=== PATIENT | female | born 2000 | race Caucasian/White ===

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

== ENCOUNTER 2023-01-18 16:49 | Emergency (ER) | payer OTHER, SELFPAY ==
[2023-01-18 18:10] VITALS: BP 123/79; PULSE 84; RESP 18; TEMP 36.9; O2SAT 98; BMI 17.9
[2023-01-18 18:27] LABS: UTC Pregnancy Test, Urine Negative (Negative)
--- NOTE | 2023-01-18 18:37 | EXP.UTC ---
Discharge Plan Disposition Patient Disposition: Home, Self-Care Condition: Good Prescriptions Prescriptions: New methylprednisolone [Medrol (Eugenio)] 4 mg tablets,dose pack See Rx Instructions .Route .COMPLEX 6 Days Qty: 21 0RF Rx Instructions: taper pack; No Action norethindrone-e.estradiol-iron [09/18 ()] 1 mg-20 mcg (21)/75 mg (7) tablet 1 tab PO DAILY Qty: 28 11RF Referrals Follow up/Referrals: Provider,Referral, MD [Primary Care Provider] - See instructions Activity Restrictions/Add. Instructions Additional Instructions/Restrictions: Oral benadryl as directed on package Oatmeal bathes may help with rash and itching Start oral steriods tomorrow Follow up with Dermatology if no improvement or any worsening of symptoms Clinical Impressions Clinical Impression: Urticaria Instructions Patient Instructions: [facility] for Hives Discharge ED Provider: Shawanda El [facility] [place] HPI General Stated complaint: Rash all over body Mode of Arrival: Ambulatory Source of Information: Patient Limitations: No Limitations Time Seen by Provider: 01/18/23 18:37 Description of Symptoms (Recalled from Triage Doc. by RN): PATIENT C/O RASH ALL OVER SINCE YESTERDAY HEENT Symptoms (Recalled from RN notes): No Resp Symptoms (Recalled from RN notes): No Skin Symptoms (Recalled from RN notes): Yes MS Symptoms (Recalled from RN notes): No Functional Status (Recalled from RN notes): WNL History of Present Illness Provider Complaint: Patient states that she started breaking out in rash yesterday and it has continued to spread States that rash is itchy and it is aggrivating her with the itching States that it started on her stomach an now has spread to her arms and legs Unsure what she may be having a reaction too Related Data Previous Rx's Medication Instructions Recorded norethindrone 1 mg-ethinyl 1 tab PO DAILY #28 tabs 08/12/20 estradiol 20 mcg (21)-iron 75 mg (7) tablet (09/18 (28)) methylprednisolone 4 mg tablets in See Rx Instructions .Route 01/18/23 a dose pack (Medrol (Eugenio)) .COMPLEX 6 days #21 tabs Allergies Allergy/AdvReac Type Severity Reaction Status Date / Time No Known Allergies Allergy Verified 08/12/20 15:42 Worker's Comp Is this a Worker's Comp case?: No [facility] Disclaimer: The information contained in this section may have been updated after the patient was seen, as this information can be updated by other users. Social History Smoking Status: Never smoker alcohol intake: never substance use type: denies use current occupational status: other Travel in the last 8 weeks: None household members: family housing: house current occupational exposures/hazards: No ROS Obtained: Yes All systems reviewed & no additional complaints except as documented and Yes Systems reviewed as appropriate & no additional complaints except as documented Constitutional Constitutional: Reports system reviewed and no additional complaints, except as documented and Reports as per HPI ENT Ears, Nose, Mouth, and Throat: Reports system reviewed and no additional complaints, except as documented and Reports as per HPI Cardiovascular Cardiovascular: Reports system reviewed and no additional complaints, except as documented and Reports as per HPI Respiratory Respiratory: Reports system reviewed and no additional complaints, except as documented and Reports as per HPI Gastrointestinal Gastrointestingal: Reports system reviewed and no additional complaints, except as documented and as per HPI Musculoskeletal Musculoskeletal: Reports system reviewed and no additional complaints, except as documented and Reports as per HPI Integumentary/Breasts Skin/Breast: Reports system reviewed and no additional complaints, except as documented, Reports as per HPI, Reports pruritus and Reports rash Physical Exam General General appearance: alert and in no apparent distress ENT ENT exam: Prese
[2023-01-18 18:59] VITALS: BP 123/79; PULSE 84; RESP 18; TEMP 36.9; O2SAT 98
[2023-01-18 19:13] LABS: UTC Strep Screen (Rapid) Negative (Negative)
== END 2023-01-18 19:20 | disposition home or self-care (01) ==
PROVIDERS: Emergency Provider Nurse Practitioner
DX: L50.9 Urticaria, unspecified (principal)
CPT/HCPCS: 81025; 87880; 96372; 99212; 99214; G0463

== ENCOUNTER 2023-05-04 18:41 | Emergency (ER) | payer OTHER, SELFPAY ==
[2023-05-04 18:41] VITALS: BP 129/72; PULSE 103; RESP 16; TEMP 36.9; O2SAT 99; BMI 18.1
--- NOTE | 2023-05-04 19:01 | HMH.EDGENADL ---
Discharge Plan Disposition Patient Disposition: Home, Self-Care Condition: Good Chief Complaint: Abdominal Pain Prescriptions Prescriptions: No Action norethindrone-e.estradiol-iron [09/18 (28)] 1 mg-20 mcg (21)/75 mg (7) tablet 1 tab PO DAILY Qty: 28 11RF methylprednisolone [Medrol (Eugenio)] 4 mg tablets,dose pack See Rx Instructions .Route .COMPLEX 6 Days Qty: 21 0RF Rx Instructions: taper pack; Referrals Follow up/Referrals: Provider,Referral, [Primary Care Provider] - See instructions Clinical Impressions Clinical Impression: Abdominal cramping Instructions Patient Instructions: DI for Acute Abdominal Pain Discharge ED Provider: Yumi Ritter General Adult HPI General Chief complaint: Abdominal Pain Stated complaint: Preg, Cramping Time Seen by Provider: 05/04/23 18:59 Mode of Arrival: Ambulatory Source of Information: Patient Limitations: No Limitations Description of Symptoms (Recalled from ER Triage Doc. by RN): Presents to ED with c/o of abd cramping today. Patient reports she took 2 tests 2 weeks ago and they were both positive but has not est. care with an OB. Patient states she believed she missed her period in February and March History of Present Illness HPI narrative: Patient with no PMHX who presents to the ED with complaints of abdominal cramping. Patient notes that 2 weeks ago, she took a urine test at home which was positive. Patient notes that for the past week, she has been having intermittent cramping which has become more constant today. Patient denies any vaginal bleeding, vaginal discharge, passage of clots or tissue. Patient has not establish care with an [facility] [employer] yet. Patient notes last period was in February. Related Data Previous Rx's Medication Instructions Recorded norethindrone 1 mg-ethinyl 1 tab PO DAILY #28 tabs 08/12/20 estradiol 20 mcg (21)-iron 75 mg (7) tablet (09/18 (28)) methylprednisolone 4 mg tablets in See Rx Instructions .Route 01/18/23 a dose pack (Medrol (Eugenio)) .COMPLEX 6 days #21 tabs Allergies Allergy/AdvReac Type Severity Reaction Status Date / Time No Known Allergies Allergy Verified 08/12/20 15:42 [facility] Disclaimer: The information contained in this section may have been updated after the patient was seen, as this information can be updated by other users. Social History Smoking Status: Current every day smoker tobacco type: e-cigarettes alcohol intake: never substance use type: denies use current occupational status: other Travel in the last 8 weeks: None household members: family housing: house current occupational exposures/hazards: No ROS Obtained: Yes All systems reviewed & no additional complaints except as documented Physical Exam General General appearance: alert and in no apparent distress Head Head exam: atraumatic, normocephalic and normal inspection Eye Eye exam: Present normal appearance, PERRL and EOMI; Absent scleral icterus or nystagmus ENT ENT exam: Present normal exam, mucous membranes moist and normal external ear exam Neck Neck exam: Present normal inspection, full ROM and trachea midline Chest Chest inspection: Present normal inspection and symmetric chest wall rise; Absent tenderness Respiratory Respiratory exam: Present normal lung sounds bilaterally; Absent respiratory distress, wheezes or accessory muscle use Cardiovascular Cardiovascular exam: Present regular rate, normal rhythm and normal heart sounds Abdominal Exam Abdominal exam: Present soft; Absent distention, tenderness, guarding, rebound, rigidity, trauma, ascites or pulsatile mass Extremities Exam Extremities exam: Present normal inspection and full ROM; Absent tenderness Back Exam Back exam: Present normal inspection and full ROM; Absent tenderness Neurological Exam Neurological exam: Present alert, oriented X3, normal gait and motor sensory deficit Psychiatric Psychiatric
--- NOTE | 2023-05-04 19:10 | PC.NURSE ---
At BS with lab; patient getting into gownn warm blanket provided to patient. Nothing needed at this time. Call light within reach
[2023-05-04 19:14] LABS: Appearance,Urine CLEAR (Clear); Bilirubin,Urine Negative (Negative); Blood, Urine TRACE-I (Negative); Color,Urine YELLOW (Yellow); Glucose,Urine (UA) Negative (Negative); Ketones,Urine 1+ (Negative); Leukocyte Esterase,Urine Negative (Negative); Microscopic, Urine URINE MICROSCOPIC (MICROSCOPIC); Nitrate,Urine Negative (Negative); Protein,Urine Negative (Negative); Specific Gravity, Urine >= 1.030 (1.005-1.030)
[2023-05-04 19:18] VITALS: BP 130/78; PULSE 89; RESP 16; O2SAT 99
[2023-05-04 19:18] LABS: Urine Pregnancy, HCG Qual. Positive (Negative)
[2023-05-04 19:34] LABS: Basophils # 0.1 K/mm3 (0-0.2); Basophils % 0.5 % (0.1-2.0); Eosinophils # 0.1 K/mm3 (0.0-0.4); Eosinophils % 0.6 % (0.1-12.0); Hematocrit 40.1 % (37.0-47.0); Hemoglobin 13.1 g/dL (12.2-16.2); Lymphocytes # 2.5 K/mm3 (0.7-4.5); Lymphocytes % 21.3 % (10-50); Mean Corpuscular HGB Conc 32.8 g/dL (31.8-35.4); Mean Corpuscular Hemoglobin 30.7 pg (27.0-31.2); Mean Corpuscular Volume 93.8 fl (81-99); Mean Platelet Volume 9.8 fl (7.4-10.4); Monocytes # 0.5 K/mm3 (0.1-1.0); Monocytes % 4.6 % (1.7-9.3); Neutrophils # 8.5 K/mm3 (1.8-7.8); Platelet Count 247 K/mm3 (142-424); Red Blood Count 4.28 M/mm3 (4.20-5.40); Red Cell Distribution Width 13.3 % (11.5-17.5); White Blood Count 11.7 K/mm3 (4.8-10.8)
[2023-05-04 19:45] LABS: Bacteria,Urine Trace /lpf; Mucus,Urine 2+ /lpf; RBC,Urine Occasional #/hpf (0-3)
[2023-05-04 19:57] LABS: Chloride 106 mmol/L (98-107)
[2023-05-04 19:58] LABS: Potassium 3.2 mmoL/L (3.5-5.1); Sodium 143 mmol/L (136-145)
[2023-05-04 20:00] VITALS: BP 125/79; PULSE 86; RESP 16; O2SAT 99
[2023-05-04 20:00] LABS: Alanine Aminotransferase 21 U/L (12-78); Aspartate Amino Transferase 37 U/L (14-36); Bilirubin,Total 0.7 mg/dl (0.2-1.3); Blood Urea Nitrogen 11 mg/dl (7-17); Creatinine Clearance Estimated 79 mL/min (50-200); Estimated Glomerular Filt Rate 91 ml/min (>60); GFR (African American) 110 ML/MIN (>60)
[2023-05-04 20:01] LABS: Albumin Level 4.5 g/dl (3.5-5.0); Albumin/Globulin Ratio 1.4 (1.1-1.8); Alkaline Phosphatase 76 U/L (38-126); Anion Gap 13.2 mEq/L (5-15); Calcium 9.6 mg/dl (8.4-10.2); Carbon Dioxide 27 mmol/L (22.0-30.0); Globulin 3.3 g/dL (1.3-3.2); Glucose 92 mg/dl (74-100); Total Protein,Serum 7.8 g/dl (6.3-8.2)
--- NOTE | 2023-05-04 20:01 | PC.NURSE ---
Rounded on patient; nothing needed at this time. Call light within reach
[2023-05-04 20:19] LABS: HCG,Quantitative 83 mIU/ml (0-5.42)
[2023-05-04 21:07] VITALS: BP 118/69; PULSE 82; RESP 16; TEMP 37.1; O2SAT 98
== END 2023-05-04 21:11 | disposition home or self-care (01) ==
PROVIDERS: Emergency Provider Emergency Medicine
DX: O26.891 Other specified pregnancy related conditions, first trimester (principal); O99.331 Smoking (tobacco) complicating pregnancy, first trimester; R10.9 Unspecified abdominal pain; Z3A.01 Less than 8 weeks gestation of pregnancy
CPT/HCPCS: 80053; 81001; 81025; 84702; 85025; 86850; 99285

== ENCOUNTER 2023-09-16 18:14 | Emergency (ER) | payer OTHER, SELFPAY ==
[2023-09-16 18:16] VITALS: BP 127/75; PULSE 105; RESP 18; TEMP 36.7; O2SAT 99; BMI 18.1
--- NOTE | 2023-09-16 18:26 | PC.NURSE ---
FHT'S [id number] PER DOPPLER
--- NOTE | 2023-09-16 18:50 | PC.NURSE ---
DR VASQUEZ AT BEDSIDE
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
[2023-09-16 19:11] VITALS: BP 108/66; PULSE 72; RESP 16; TEMP 36.7; O2SAT 99
== END 2023-09-16 19:12 | disposition admitted as inpatient to this hospital (09) ==
PROVIDERS: Emergency Provider Emergency Medicine; PCP Family Medicine
DX: O9A.212 Injury, poisoning and certain other consequences of external causes complicating pregnancy, second trimester (principal); M25.552 Pain in left hip; Z3A.22 22 weeks gestation of pregnancy; V49.50XA Passenger injured in collision with unspecified motor vehicles in traffic accident, initial encounter; O99.332 Smoking (tobacco) complicating pregnancy, second trimester; F17.290 Nicotine dependence, other tobacco product, uncomplicated
CPT/HCPCS: 99284

== ENCOUNTER 2023-09-16 19:09 | Outpatient (CLI) | payer OTHER, SELFPAY ==
[2023-09-16 19:31] VITALS: BMI 18.4
[2023-09-16 19:42] VITALS: BP 112/62; PULSE 86; RESP 17; TEMP 36.7; O2SAT 100; BMI 18.3
[2023-09-16 19:45] LABS: Microscopic, Urine URINE MICROSCOPIC (MICROSCOPIC)
[2023-09-16 19:55] LABS: Appearance,Urine SL CLOUDY (Clear); Bilirubin,Urine Negative (Negative); Blood, Urine Negative (Negative); Color,Urine YELLOW (Yellow); Glucose,Urine (UA) Negative (Negative); Ketones,Urine Negative (Negative); Leukocyte Esterase,Urine 2+ (Negative); Nitrate,Urine Negative (Negative); Protein,Urine TRACE (Negative); Specific Gravity, Urine 1.015 (1.005-1.030)
[2023-09-16 20:08] LABS: Amphetamine/Metha Screen,Urine Negative ng/ml (<1000); Barbiturates Screen,Urine Negative ng/ml (<200)
[2023-09-16 20:11] LABS: Benzodiazepines Screen,Urine Negative ng/ml (<200)
[2023-09-16 20:12] LABS: Cannabinoid Screen,Urine Positive ng/ml (<50); Cocaine Screen,Urine Negative ng/ml (<300)
[2023-09-16 20:13] LABS: Bacteria,Urine Trace /lpf; Methadone Screen,Urine Negative ng/ml (<300)
[2023-09-16 20:14] LABS: Opiate Screen,Urine Negative ng/ml (<300); Phencyclidine Screen,Urine Negative ng/ml (<25)
== END 2023-09-16 22:35 | disposition home or self-care (01) ==
LOC: OBOUT 19:11 → OB 19:12
PROVIDERS: Obstetrics & Gynecology; PCP Family Medicine; Visit Provider Family Medicine
DX: O26.892 Other specified pregnancy related conditions, second trimester (principal); Z3A.22 22 weeks gestation of pregnancy; V49.50XA Passenger injured in collision with unspecified motor vehicles in traffic accident, initial encounter
CPT/HCPCS: 36415; 80307; 81001; 86850; 87086; G0463

== ENCOUNTER 2023-12-16 21:40 | Emergency (ER) | payer SELFPAY ==
[2023-12-16 21:42] VITALS: BP 132/100; PULSE 86; RESP 16; TEMP 36.6; O2SAT 99; BMI 19.1
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
[2023-12-16 22:04] VITALS: BP 132/100; PULSE 86; RESP 16; TEMP 36.6; O2SAT 99
== END 2023-12-16 22:07 | disposition home or self-care (01) ==
PROVIDERS: Emergency Provider Student in an Organized Health Care Education/Training Program; PCP Family Medicine
DX: O26.891 Other specified pregnancy related conditions, first trimester (principal); Z04.1 Encounter for examination and observation following transport accident; V49.50XA Passenger injured in collision with unspecified motor vehicles in traffic accident, initial encounter; Y92.410 Unspecified street and highway as the place of occurrence of the external cause; Z3A.35 35 weeks gestation of pregnancy
CPT/HCPCS: 99284

== ENCOUNTER 2023-12-16 22:12 | Outpatient (CLI) | payer OTHER, SELFPAY ==
[2023-12-16 22:18] VITALS: BMI 19.7
[2023-12-16 22:34] LABS: Microscopic, Urine URINE MICROSCOPIC (MICROSCOPIC)
[2023-12-16 22:35] VITALS: BP 112/81; PULSE 82; RESP 18; TEMP 37.2; O2SAT 98; BMI 19.8
[2023-12-16 22:36] LABS: Appearance,Urine CLEAR (Clear); Bilirubin,Urine Negative (Negative); Blood, Urine Negative (Negative); Color,Urine YELLOW (Yellow); Glucose,Urine (UA) Negative (Negative); Ketones,Urine Negative (Negative); Leukocyte Esterase,Urine 3+ (Negative); Nitrate,Urine Negative (Negative); Protein,Urine Negative (Negative)
[2023-12-16 22:48] LABS: Benzodiazepines Screen,Urine Negative ng/ml (<200)
[2023-12-16 22:49] LABS: Amphetamine/Metha Screen,Urine Negative ng/ml (<1000); Barbiturates Screen,Urine Negative ng/ml (<200)
[2023-12-16 22:50] LABS: Methadone Screen,Urine Negative ng/ml (<300)
[2023-12-16 22:51] LABS: Cannabinoid Screen,Urine Negative ng/ml (<50); Cocaine Screen,Urine Negative ng/ml (<300)
[2023-12-16 22:52] LABS: Bacteria,Urine 1+ /lpf; Opiate Screen,Urine Negative ng/ml (<300); Squamous Epithelial Cell,Urine Occasional #/hpf (0-5); WBC,Urine 20-50 #/hpf (0-3)
[2023-12-16 22:53] LABS: Phencyclidine Screen,Urine Negative ng/ml (<25)
== END 2023-12-17 01:57 | disposition home or self-care (01) ==
LOC: OBOUT 22:14 → OB 22:14
PROVIDERS: PCP Family Medicine; Visit Provider Obstetrics & Gynecology
DX: O26.893 Other specified pregnancy related conditions, third trimester (principal); Z3A.35 35 weeks gestation of pregnancy; V49.50XA Passenger injured in collision with unspecified motor vehicles in traffic accident, initial encounter
CPT/HCPCS: 80307; 81001; 87086; G0463

== ENCOUNTER 2025-05-17 15:57 | Outpatient (CLI) | payer SELFPAY ==
--- OUTSIDE RECORDS SUMMARY | 2025-05-17 16:00 | XMS_ITS | Clinical Summary ---
Author Organization [facility] Address [address] [place] [address] Care Team Providers Care Surgical Garment Inspector Name Role Phone Unavailable Primary Care Provider Unavailabl e Allergies No known active allergies Medications No known medications Active Problems No known active problems Immunizations Immunization Administration Dates Next Due Influenza, injectable, quadrivalent, preservativ e free 05/28/2023 Tdap 10/28/2023 Social History Tobacco Use Types Packs/Day Years Used Date Smoking Tobacco: Never Smokeless Tobacco: Never Tobacco Cessation:Counseling Given: Not Answered Alcohol Use Standard Drinks/Week Comments Never 0 (1 standard drink = 0.6 oz pur e alcohol) PHQ-2 Answer Date Recorded Patient Health Questionnaire-2 Score 0 12/23/2023 PHQ-2A Answer Date Recorded Patient Health Questionnaire-2 Score 0 08/05/2023 Comments No Sex and Gender Information Value Date Recorded Sex Assigned at Not on file Legal Sex Female 7:34 PM EDT Gender Identity Not on file Sexual Orientation Not on file Last Filed Vital Signs Vital Sign Reading Time Taken Comments Blood Pressure 142/87 12/23/2023 10:29 AM EDT Pulse - - Temperature - - Respiratory Rate - - Oxygen Saturation - - Inhaled Oxygen Concentration - - Weight 50 kg (110 lb 3.7 oz) 12/23/2023 10:29 AM EDT Height 157.5 cm (5' 2 ) 05/28/2023 11:20 AM EDT Body Mass Index 20.16 05/28/2023 11:20 AM EDT Plan of Treatment Health Maintenance Due Date Last Done Comments [facility]-/Child/Adol SDOH Screenings 2001 [facility]- SDOH Screenings 2019 [facility]-Adult SDOH Screenings 2019 [facility]-Pap Smear 2022 [facility]-Depression Screening 12/22/2024 12/23/2023 [id number] Vaccine (1 - season) 2025 [facility]-Influenza Vaccine (#1) 2025 05/28/2023, [facility]-DTaP,Tdap,and Td Vaccines (8 - Td or Tdap) 10/27/2033 10/28/2023, 01/26/2014, 11/09/2005, Additional history exists [facility]-Zoster Vaccines (1 of 2) 2051 01/26/2014, 06/15/2002 [facility]-HIB Vaccines Completed 06/15/2002, , 2001 [facility]-Hepatitis B Vaccines Completed 002, 2001, 2001 [facility]-Pneumococcal Vaccine: Pediatrics (0 to 5 Years) and At-Risk Patients (6 to 49 Years) Aged Out 06/15/2002, 2001, 2001, Additional history exists No longer eligible based on patient's age to complete this topic [facility]-IPV Vaccines Completed 11/09/2005, 04/2002, 2001, Additional history exists [facility]-Varicella Vaccines Completed 01/26/2014, 2001 HPV Vaccines Completed 08/03/2018, 03/2018, 01/04/2018 [facility]-Hepatitis A Vaccines Completed 08/03/2018, 03/2018 [facility]-HIV Screening Completed 05/28/2023 [facility]-Hepatitis C Screening Completed 05/28/2023 [facility]-Rotavirus Vaccines Aged Out No lo nger eligible based on patient's age to complete this topic Procedures Procedure Name Priority Date/Time Associated Diagnosis Comments HEPATITIS C ANTIBODY W/REFLEX TO HCV QUANT PCR Routine 05/28/2023 11:25 AM EDT Unsure of LMP (last menstrual period) as reason for ultrasound scan test positive HIV 1/2 ANTIBODY/ANTIGEN SCREEN WITH REFLEX TO HIV I/II DIFFERENTIATION Routine 05/28/2023 11:25 AM EDT Unsure of LMP (last menstrual period) as reason for ultrasound scan test positive from Last 3 Months or Most Recently Relevant to Health Maintenance Results * HIV 1 & 2 Antibody/Antigen Screen (05/28/2023 11:25 AM EDT) Pathologist [facility] HIV 1 & 2 Antibody/Antigen Screen Non Reactive Non Reactive 05/28/2023 1:40 PM EDT [facility] Comment:Screening for HIV 1 & 2 antibodies, and P24 antigen is NONREACTIVE. No confirmatory testing is required. Blood Venous blood specimen / Unknown Venipuncture / Unknown 05/28/2023 11:25 AM EDT 05/28/2023 12:56 PM EDT Result Kenny Navarro MD LAB BLOOD ORDERABLES Final Resu lt Performing Organization Address City/[facility] [[email or web address]] Co de Phone Number HEALTHCARE LAB [address] [place] [address] * Hepatitis C Antibody (05/28/2023 11:25 AM EDT) Pathologist [facility] Hepatitis C Antibody Negative Negative 05/28/2023 1:40 PM EDT [facility] Blood Venous blood specimen / Unknown Venipuncture / Unknown 05/28/2023 11:25 AM EDT 05/28/2023 12:56 PM EDT Result Kenny Navarro MD LAB BLOOD ORDERABLES Final Resu lt Performing Organization Address City/[facility] [[email or web address]] Co de Phone Number HEALTHCARE LAB [address] [place] [address] from Last 3 Months or Most Recently Relevant to Health Maintenance Insurance [facility] MEDICAID
== END 2025-05-17 23:59 | disposition home or self-care (01) ==
PROVIDERS: Visit Provider Nurse Practitioner Obstetrics & Gynecology
DX: Z34.90 Encounter for supervision of normal pregnancy, unspecified, unspecified trimester (principal)
CPT/HCPCS: 36415; 84144; 84702

== ENCOUNTER 2025-05-21 15:22 | Outpatient (CLI) | payer MEDICAID, SELFPAY ==
--- OUTSIDE RECORDS SUMMARY | 2025-05-21 15:24 | XMS_ITS | Clinical Summary ---
Author Organization [facility] Address [address] [place] [address] Care Team Providers Care Fisher Net Name Role Phone Unavailable Primary Care Provider [...] [facility]-Pap Smear 2022 [facility]-Depression Screening 12/22/2024 12/23/2023 [id number] Vaccine (1 - season) 2025 [facility]-Influenza Vaccine [...] Antibody/Antigen Screen (05/28/2023 11:25 AM EDT) Pathologist [facility] HIV 1 & 2 Antibody/Antigen Screen Non [...] ORDERABLES Final Resu lt Performing Organization Address City/[facility] Co de Phone Number HEALTHCARE LAB [address] [place] [address] * Hepatitis C Antibody (05/28/2023 11:25 AM EDT) Pathologist [facility] Hepatitis C Antibody Negative Negative 05/28/2023 1:40 PM EDT [facility] Blood Venous blood specimen / Unknown Venipuncture / Unknown 05/28/2023 11:25 AM EDT 05/28/2023 12:56 PM EDT Result Kenny Navarro MD LAB BLOOD ORDERABLES Final Resu lt Performing Organization Address City/[facility] Co de Phone Number HEALTHCARE [facility] [address] [place] [address] from Last 3 Months or Most Recently Relevant to Health Maintenance Insurance [facility] MEDICAID
== END 2025-05-21 23:59 | disposition home or self-care (01) ==
PROVIDERS: Visit Provider Nurse Practitioner Obstetrics & Gynecology
DX: Z34.90 Encounter for supervision of normal pregnancy, unspecified, unspecified trimester (principal); Z3A.00 Weeks of gestation of pregnancy not specified
CPT/HCPCS: 36415; 84702

== ENCOUNTER 2025-05-30 23:28 | Emergency (ER) | payer MEDICAID, SELFPAY ==
[2025-05-30 23:33] VITALS: BP 118/69; PULSE 86; RESP 20; TEMP 36.7; O2SAT 97; BMI 15.3
[2025-05-31 00:30] VITALS: BP 99/57; PULSE 83; O2SAT 98
--- NOTE | 2025-05-31 00:34 | HMH.EDGENADL ---
Discharge Plan Disposition Patient Disposition: Home, Self-Care Prescriptions Prescriptions: No Action medroxyprogesterone 150 mg/mL suspension 150 mg IM [id number] Qty: 1 3RF Referrals Follow up/Referrals: Provider,Referral, [Primary Care Provider, Medical] - See instructions Activity Restrictions/Add. Instructions Additional Instructions/Restrictions: Please follow-up with your DIRECTOR OF SPECIAL EVENTS. Please return to the emergency department if you develop any new or worsening symptoms or become concerned for your health. Clinical Impressions Clinical Impression: Intermittent lower abdominal pain, 7 weeks gestation of Instructions Patient Instructions: DI for Acute Abdominal Pain Print Language Print Language: Singaporean Discharge ED Provider: Santana Stack General Adult HPI General Chief complaint: Abdominal Pain Stated complaint: antepartum 1st tri, throbbing abd pain, shakiness Time Seen by Provider: 05/31/25 00:34 Mode of Arrival: Ambulatory Source of Information: Patient Description of Symptoms (Recalled from ER Triage Doc. by RN): abdominal pain approximately 6 weeks History of Present Illness HPI narrative: 25-year-old female G2, P1 approximately 7 weeks by last menstrual period of April 10, presents for lower abdominal pain. She reports that it feels kind of like bruising. She denies any urinary symptoms. Reports that she has been having normal bowel movements. Denies any vaginal bleeding or discharge. Denies significant nausea or vomiting. Pain has been present throughout the day. Related Data Previous Rx's ?Medication ?Instructions ?Recorded medroxyprogesterone 150 mg/mL 150 mg IM [id number] #1 mL 04/11/24 intramuscular suspension Allergies Allergy/AdvReac Type Severity Reaction Status Date / Time No Known Allergies Allergy Verified 04/11/24 10:53 [facility] Disclaimer: The information contained in this section may have been updated after the patient was seen, as this information can be updated by other users. Medical History (Updated 05/31/25 @ 02:09 by Santana Stack MD) No significant active problems Surgical History (Updated 04/11/24 @ 10:54 by MARGUERITE Cameron) No significant past surgical history Family History Other No significant family history Social History Smoking Status: Current every day smoker tobacco type: e-cigarettes alcohol intake: never substance use type: denies use current occupational status: unemployed Travel in the last 8 weeks?: None household members: family housing: house current occupational exposures/hazards: No Have you lived/traveled outside [place] in past 30 days?: No Contact w/someone who lives/traveled outside US past 30 days?: No Exposure to someone with infectious disease in past 14 days?: No Do you have a fever (greater than 100.4 F or 38 C)?: No Have you tested positive for COVID-19?: No Exposed to someone with COVID-19 in past 14 days?: No Do you have a sore throat?: No Do you have a cough?: No Do you have any weakness?: No Do you have any diarrhea?: No Are you experiencing any unusual bleeding?: No Do you have any muscle aches/pain?: No Do you have any abdominal pain?: Yes Are you experiencing loss of taste or smell?: No Other Medical History Have you received the Flu Vaccine for this season: No Have you received the Pneumonia Vaccine: No ROS Obtained: Yes All systems reviewed & no additional complaints except as documented Physical Exam General General appearance: alert and in no apparent distress Head Head exam: atraumatic and normocephalic Eye Eye exam: Present normal appearance, PERRL and EOMI ENT ENT exam: Present normal oropharynx and normal external ear exam Neck Neck exam: Present normal inspection and full ROM Chest Chest inspection: Present normal inspection and symmetric chest wall rise; Absent tenderness Respiratory Respiratory exam: Present normal lung sounds bilaterally; Absent respiratory distress Cardiovascular Cardiovascular exam: Present regular rate and normal rhythm Abdominal Exam Abdominal exam: Present soft; Absent distention, tenderness or guarding Extremities Exam Extremities exam: Present normal inspection; Absent edema or joint swelling Back Exam Back exam: Present normal inspection; Absent tenderness Neurological Exam Neurological exam: Present alert and oriented X3; Absent motor sensory deficit Psychiatric Psychiatric exam: Present normal affect and normal mood Skin Skin exam: Present warm, dry and normal color Lymphatic Lymphatic Findings: no adenopathy Medical Decision Making Medical Records Medical records reviewed: Yes I reviewed the patient's medical records. Screening: Per USPSTF and CDC recommendations, given the prevalence of disease in our region, it is our hospital?s policy to screen for HIV and viral Hepatitis for all patients aged 18 and over and those with ongoing risk factors. Jan Inquiry Pt receiving controlled substance: No Jan was queried for this patient: No Vital Signs: 05/30/25 23:33 05/31/25 00:30 05/31/25 02:35 Temperature 98.0 F 98.4 F Temperature Source Oral Oral Pulse Rate 83 82 Pulse Rate [Right Radial] 86 Respiratory Rate 20 20 Blood Pressure 99/57 L 115/55 L Blood Pressure [Right Arm] 118/69 Blood Pressure Mean [Right Arm] 85 Blood Pressure Source Automatic Cuff Automatic Cuff Blood Pressure Source [Right Arm] Automatic Cuff Blood Pressure Position Supine Sitting Blood Pressure Position [Right Arm] Sitting 02 Sat by Pulse Oximetry 97 98 Oxygen Delivery Method Room Air Room Air Room Air Lab Data Lab results reviewed: Yes I reviewed the patient's lab results. Lab Results 05/31/25 00:35: WBC 9.7, RBC 3.91 L, Hgb 11.6 L, Hct 34.7 L, MCV 88.7, MCH 29.7, MCHC 33.4, RDW 13.2, Plt Count 300, MPV 11.5 H, Neut % (Auto) 60.1, Lymph % (Auto) 28.5, [place] % (Auto) 9.6 H, Eos % (Auto) 1.0, Baso % (Auto) 0.6, Neut # (Auto) 5.8, Lymph # (Auto) 2.8, [place] # (Auto) 0.9, Eos # (Auto) 0.1, Baso # (Auto) 0.1, Sodium 137, Potassium 3.6, Chloride 103, Carbon Dioxide 23, Anion Gap 14.6, BUN 13, Creatinine 0.50 L, Estimated Creat Clear 104, Estimated GFR 152, Est GFR ( Amer) 183, Glucose 82, Calcium 9.3, Total Bilirubin 0.5, AST 23, ALT 13, Alkaline Phosphatase 57, Total Protein 7.1, Albumin 4.5, Globulin 2.6, Albumin/Globulin Ratio 1.7, HCG, Quant 72339 H, HCV Ab LAYLA w/Rflx PCR Qn Negative, HIV Ag/Ab Combo Qual Negative 05/31/25 01:20: Urine Color Yellow, Urine Appearance Clear, Urine pH 6.0, Ur Specific [place] 1.025, Urine Protein Negative, Urine Glucose (UA) Negative, Urine Ketones Negative, Urine Blood Negative, Urine Nitrate Negative, Urine Bilirubin Negative, Urine Urobilinogen 0.2, Ur Leukocyte Esterase Trace, Urine RBC Occasional, Urine WBC Occasional, Ur Squamous Epith Cells 5-10, Urine Bacteria Trace 05/31/25 00:35 05/31/25 00:35 Orders (Tests/Meds): ORDERS Category Date Time Status POCUS Point of Care (ER Only) Stat Exams 05/31/25 02:35 Ordered Beta HCG, Quant [HCG,Quantitative] Stat Lab 05/31/25 00:35 Completed CBC w/Auto Diff [Complete Blood Count Auto Diff] Stat Lab 05/31/25 00:35 Completed CMP [Comprehensive Metabolic Panel] Stat Lab 05/31/25 00:35 Completed HIV Combo Routine Lab 05/30/25 23:37 Completed Hepatitis C Ab Qual. W/ RFX Routine Lab 05/30/25 23:37 Completed UA [Urinalysis and Microscopic] Stat Lab 05/31/25 01:20 Completed Medical Decision Narrative: 25-year-old female at approximately 7 weeks by last menstrual period presents for vague lower abdominal discomfort today.. History was obtained via interactive discussion with patient. On arrival, patient is [afebrile, hemodynamically stable, satting appropriately, alert, oriented x4, GCS 15], moving all extremities spontaneously. Full physical exam performed and significant for no significant abdominal tenderness Differential includes but is not limited to UTI, ovarian pathology, ectopic , cramping, gastroenteritis. Workup initiated including CBC CMP beta-hCG UA. Bedside transabdominal ultrasound showed a hypoechoic intrauterine sac consistent with early . On re-evaluation, patient reports significant symptomatic improvement. Laboratory workup independently interpreted by me and significant for appropriately elevated beta-hCG, no evidence of UTI, unremarkable CBC CMP. Formal transvaginal ultrasound was considered, but deemed unnecessary given there is an intrauterine sac noted on transabdominal ultrasound, making the risk of ectopic exceedingly low. Especially since patient is essentially asymptomatic.. Given patient history, exam and workup, patient's presentation most likely represents lower abdominal discomfort and early . Encouraged follow-up with DIRECTOR OF SPECIAL EVENTS. Discharged in stable condition.. Procedures Risk/Benefits of Procedure(s) Were Explained: Yes Limited Ultrasound Indication:: imited OB ultrasound Indication: of unknown location Identified structures: Uterus Findings: Uterus: Hypoechoic fluid collection consistent with gestational sac, unable to visualize further detail due to transabdominal approach and early . [place] sac: Free fluid absent Impression: Hypoechoic fluid collection consistent with gestational sac, unable to visualize further detail due to transabdominal approach and early . -Free fluid: Absent Images were saved to permanent archive The study was technically adequate CPT Transabdominal: 98245-35 This study was performed by Santana Stack MD and I personally interpreted all images/videos. Critical Care Critical Care Time Critical Care Time: No
[2025-05-31 00:54] LABS: Hematocrit 34.7 % (37.0-47.0); Hemoglobin 11.6 g/dL (12.2-16.2); Immature Granulocytes % 0.2 %; Mean Corpuscular HGB Conc 33.4 g/dL (31.8-35.4); Mean Corpuscular Hemoglobin 29.7 pg (27.0-31.2); Mean Corpuscular Volume 88.7 fl (81-99); Nucleated Red Blood Cells % 0 %; Platelet Count 300 K/mm3 (142-424); Red Blood Count 3.91 M/mm3 (4.20-5.40); Red Cell Distribution Width-SD 43.0 fL; White Blood Count 9.7 K/mm3 (4.8-10.8)
[2025-05-31 01:00] LABS: Alanine Aminotransferase 13 U/L (12-78); Albumin Level 4.5 g/dl (3.5-5.0); Albumin/Globulin Ratio 1.7 (1.1-1.8); Alkaline Phosphatase 57 U/L (38-126); Anion Gap 14.6 mEq/L (5-15); Aspartate Amino Transferase 23 U/L (14-36); Bilirubin,Total 0.5 mg/dl (0.2-1.3); Blood Urea Nitrogen 13 mg/dl (7-17); Calcium 9.3 mg/dl (8.4-10.2); Carbon Dioxide 23 mmol/L (22.0-30.0); Chloride 103 mmol/L (98-107); Creatinine Clearance Estimated 104 mL/min (50-200); Creatinine,Serum 0.50 mg/dl (0.52-1.04); Estimated Glomerular Filt Rate 152 ml/min (>60); GFR (African American) 183 ML/MIN (>60); Globulin 2.6 g/dL (1.3-3.2); Glucose 82 mg/dl (74-100); Potassium 3.6 mmoL/L (3.5-5.1); Sodium 137 mmol/L (136-145); Total Protein,Serum 7.1 g/dl (6.3-8.2)
[2025-05-31 01:26] LABS: Microscopic, Urine URINE MICROSCOPIC (MICROSCOPIC)
[2025-05-31 01:34] LABS: Bilirubin,Urine Negative (Negative); Color,Urine YELLOW (Yellow); Glucose,Urine (UA) Negative (Negative); Ketones,Urine Negative (Negative); Leukocyte Esterase,Urine TRACE (Negative); PH,Urine 6.0 (5.0-8.5); Protein,Urine Negative (Negative); Specific Gravity, Urine 1.025 (1.005-1.030); Urobilinogen,Urine 0.2 EU/dl (0.2)
[2025-05-31 01:48] LABS: Bacteria,Urine Trace /lpf; RBC,Urine Occasional #/hpf (0-3); WBC,Urine Occasional #/hpf (0-3)
[2025-05-31 02:24] LABS: Hepatitis C Ab Qual. W/ RFX NEGATIVE (Negative)
[2025-05-31 02:35] VITALS: BP 115/55; PULSE 82; RESP 20; TEMP 36.9; O2SAT 97
== END 2025-05-31 02:40 | disposition home or self-care (01) ==
PROVIDERS: Emergency Provider Emergency Medicine
DX: O26.891 Other specified pregnancy related conditions, first trimester (principal); R10.30 Lower abdominal pain, unspecified; Z3A.01 Less than 8 weeks gestation of pregnancy
CPT/HCPCS: 80053; 81001; 84702; 85025; 86803; 87389; 99284

== ENCOUNTER 2025-07-24 11:54 | Outpatient (CLI) | payer MEDICAID, SELFPAY ==
--- OUTSIDE RECORDS SUMMARY | 2025-07-24 11:57 | XMS_ITS | Clinical Summary ---
Author Organization Address [address] [place] [address] Care Team Providers Care Dressage Judge Name Role Phone Unavailable Primary Care Provider [...] [facility]-Pap Smear 2022 [facility]-Depression Screening 12/22/2024 12/23/2023 [id number] Vaccine (1 - season) 2025 [facility]-Influenza Vaccine [...] Antibody/Antigen Screen (05/28/2023 11:25 AM EDT) Pathologist [facility] HIV 1 & 2 Antibody/Antigen Screen Non [...] ORDERABLES Final Resu lt Performing Organization Address City/[facility] Co de Phone Number [facility] [address] [place] [address] * Hepatitis C Antibody (05/28/2023 11:25 AM EDT) Pathologist [facility] Hepatitis C Antibody Negative Negative 05/28/2023 1:40 PM EDT [facility] Blood Venous blood specimen / Unknown Venipuncture / Unknown 05/28/2023 11:25 AM EDT 05/28/2023 12:56 PM EDT Result Kenny Navarro MD LAB BLOOD ORDERABLES Final Resu lt Performing Organization Address City/[facility] Co de Phone Number [facility] [address] [place] [address] from Last 3 Months or Most Recently Relevant to Health Maintenance Insurance [employer] [facility] MED[employer]
[2025-07-24 12:19] LABS: Hematocrit 31.0 % (37.0-47.0); Hemoglobin 10.5 g/dL (12.2-16.2); Immature Granulocytes % 0.1 %; Mean Corpuscular HGB Conc 33.9 g/dL (31.8-35.4); Mean Corpuscular Hemoglobin 29.8 pg (27.0-31.2); Mean Corpuscular Volume 88.1 fl (81-99); Nucleated Red Blood Cells % 0 %; Platelet Count 228 K/mm3 (142-424); Red Blood Count 3.52 M/mm3 (4.20-5.40); Red Cell Distribution Width-SD 42.6 fL; White Blood Count 7.8 K/mm3 (4.8-10.8)
[2025-07-24 13:32] LABS: Hepatitis C Ab Qual. W/ RFX NEGATIVE (Negative)
[2025-07-24 15:16] LABS: RPR W/RFX Titers Nonreactive (Nonreactive)
[2025-07-25 09:12] LABS: Hepatitis B Surface Antigen Negative (Negative)
[2025-07-25 10:13] LABS: Rubella Antibodies, IgG 2.42 index (Immune >0.99)
== END 2025-07-24 23:59 | disposition home or self-care (01) ==
LOC: LAB 11:55
PROVIDERS: Visit Provider Obstetrics & Gynecology
DX: Z34.91 Encounter for supervision of normal pregnancy, unspecified, first trimester (principal); Z3A.00 Weeks of gestation of pregnancy not specified
CPT/HCPCS: 36415; 85025; 86592; 86762; 86787; 86803; 86850; 87340; 87389